=== PATIENT | male | born 1995 | race African-American/Black ===

== ENCOUNTER 2020-12-25 11:55 | Emergency (ER) | payer OTHER ==
[~2020-12-25] VITALS: Ht 175.3 cm; Wt 122.0 kg
[2020-12-25] MEDS ORDERED: IBUPROFEN 600MG TABLET PO ONE (13:15)
[2020-12-25] MEDS ORDERED: IBUP-2029 PO (14:54)
[2020-12-25 15:02] VITALS: BP 151/92
== END 2020-12-25 15:03 | disposition home or self-care (01) ==
LOC: ER 11:55
DX: S01.111A Laceration without foreign body of right eyelid and periocular area, initial encounter (principal); T76.21XA Adult sexual abuse, suspected, initial encounter; I10 Essential (primary) hypertension; Y04.0XXA Assault by unarmed brawl or fight, initial encounter; Y93.89 Activity, other specified; Y92.89 Other specified places as the place of occurrence of the external cause; Y99.8 Other external cause status
CPT/HCPCS: 70486; 99284; A4217; Z7610

== ENCOUNTER 2021-01-11 20:23 | Emergency (ER) | payer OTHER ==
[~2021-01-11] VITALS: Ht 175.3 cm; Wt 122.0 kg
[~2021-01-11 20:23] MED LIST: IBUP-2029 PO
[2021-01-11 20:28] VITALS: BP 173/109
== END 2021-01-12 00:12 | disposition left against medical advice (07) ==
LOC: ER 20:23
DX: Z53.21 Procedure and treatment not carried out due to patient leaving prior to being seen by health care provider (principal)

== ENCOUNTER 2021-01-13 07:32 | Emergency (ER) | payer OTHER ==
[~2021-01-13] VITALS: Ht 172.7 cm; Wt 105.0 kg
[2021-01-13 07:59] VITALS: BP 119/93
== END 2021-01-13 08:08 | disposition home or self-care (01) ==
LOC: ER 07:45
DX: R07.89 Other chest pain (principal); F32.9 Major depressive disorder, single episode, unspecified; I10 Essential (primary) hypertension
CPT/HCPCS: 93005; 99283

== ENCOUNTER 2021-09-22 00:03 | Emergency (ER) | payer MEDICAID, OTHER ==
[~2021-09-22] VITALS: Ht 175.3 cm; Wt 123.0 kg
[2021-09-22] MEDS ORDERED: TRAMADOL 50MG TABLET PO ONE (01:15)
[2021-09-22] MEDS ORDERED: T3 PO (01:44)
[2021-09-22] MEDS ORDERED: NAPR-681 MT (01:44)
[2021-09-22 02:21] VITALS: BP 143/94
== END 2021-09-22 02:52 | disposition home or self-care (01) ==
LOC: ER 00:03
DX: S63.690A Other sprain of right index finger, initial encounter (principal); W18.39XA Other fall on same level, initial encounter; Y93.89 Activity, other specified; Y92.89 Other specified places as the place of occurrence of the external cause; Y99.8 Other external cause status
CPT/HCPCS: 29130; 73130; 99283

== ENCOUNTER 2023-04-11 11:43 | Emergency (ER) | payer MEDICAID, OTHER ==
[~2023-04-11] VITALS: Ht 180.3 cm; Wt 68.0 kg
[~2023-04-11 11:43] MED LIST changes: +NAPR-681 MT; +T3 PO
[2023-04-11 11:49] VITALS: O2SAT 98
[2023-04-11] MEDS ORDERED: IBUPROFEN 800MG TABLET PO ONE (12:15)
[2023-04-11] MEDS ORDERED: TETANUS, DIPHTHERIA, PERTUSSIS VAC/PF 0.5ML (>10YR OLD) IM ONE ×2 (12:15→15:00)
[2023-04-11] MEDS ORDERED: IBUP-2030 MT (14:33)
[2023-04-11 15:39] VITALS: BP 136/83; PULSE 74; RESP 20; TEMP 98
== END 2023-04-11 15:41 | disposition home or self-care (01) ==
LOC: ER 11:52
DX: S00.93XA Contusion of unspecified part of head, initial encounter (principal); S50.01XA Contusion of right elbow, initial encounter; S40.022A Contusion of left upper arm, initial encounter; R51.9 Headache, unspecified; V09.9XXA Pedestrian injured in unspecified transport accident, initial encounter; Y93.89 Activity, other specified; Y92.89 Other specified places as the place of occurrence of the external cause; Y99.8 Other external cause status
CPT/HCPCS: 72100; 73060; 73080; 73610; 73630; 90471; 90715; 99285

== ENCOUNTER 2023-04-19 08:36 | Emergency (ER) | payer OTHER ==
[~2023-04-19] VITALS: Ht 175.3 cm; Wt 109.0 kg
[~2023-04-19 08:36] MED LIST changes: +IBUP-2030 MT
[2023-04-19 08:46] VITALS: BP 166/101; PULSE 82; RESP 16; TEMP 98.5; O2SAT 99
[2023-04-19] MEDS ORDERED: TRAM50TA3 MT ×2 (09:44→09:45)
[2023-04-19] MEDS ORDERED: IBUP-2030 MT (09:47)
== END 2023-04-19 10:21 | disposition home or self-care (01) ==
LOC: ER 08:36
DX: M25.572 Pain in left ankle and joints of left foot (principal); F32.9 Major depressive disorder, single episode, unspecified; I10 Essential (primary) hypertension; Z79.899 Other long term (current) drug therapy
CPT/HCPCS: 99281; 99283

== ENCOUNTER 2023-05-03 06:18 | Emergency (ER) | payer OTHER ==
[~2023-05-03] VITALS: Ht 177.8 cm; Wt 108.0 kg
[~2023-05-03 06:18] MED LIST changes: +TRAM50TA3 MT
[2023-05-03 06:39] VITALS: O2SAT 100
[2023-05-03] MEDS ORDERED: ACETAMINOPHEN 325MG TABLET PO ONE (07:30)
[2023-05-03] MEDS ORDERED: IBUP-2029 MT (09:20)
[2023-05-03 09:39] VITALS: BP 138/56; PULSE 86; RESP 16; TEMP 98.9
== END 2023-05-03 09:44 | disposition home or self-care (01) ==
LOC: ER 06:18
DX: S00.83XA Contusion of other part of head, initial encounter (principal); S60.042A Contusion of left ring finger without damage to nail, initial encounter; G89.11 Acute pain due to trauma; I10 Essential (primary) hypertension; X58.XXXA Exposure to other specified factors, initial encounter; Y93.89 Activity, other specified; Y92.89 Other specified places as the place of occurrence of the external cause; Y99.8 Other external cause status
CPT/HCPCS: 29130; 70486; 73090; 73100; 73130; 99284

== ENCOUNTER 2023-05-09 23:36 | Emergency (ER) | payer OTHER ==
[~2023-05-09] VITALS: Ht 177.8 cm; Wt 109.2 kg
[~2023-05-09 23:36] MED LIST changes: +IBUP-2029 MT
[2023-05-09 23:59] VITALS: TEMP 98; O2SAT 98
[2023-05-10] MEDS ORDERED: KETOROLAC 60MG/2ML VIAL IM STA (01:04)
[2023-05-10] MEDS ORDERED: HYDROCODONE/ACETAMINOPHEN 5/325MG TABLET PO STA (01:04)
[2023-05-10 01:36] VITALS: BP 173/106; PULSE 103; RESP 16
[2023-05-10] MEDS ORDERED: NAPR-681 PO (03:34)
[2023-05-10] MEDS ORDERED: HYDR-4001 MT (03:34)
== END 2023-05-10 04:03 | disposition home or self-care (01) ==
LOC: ER 23:36
DX: S20.212A Contusion of left front wall of thorax, initial encounter (principal); R07.81 Pleurodynia; I10 Essential (primary) hypertension; Z79.899 Other long term (current) drug therapy; Y08.89XA Assault by other specified means, initial encounter; Y93.89 Activity, other specified; Y92.89 Other specified places as the place of occurrence of the external cause; Y99.8 Other external cause status
CPT/HCPCS: 99283; 71101; 93005; 96372; J1885